=== PATIENT | female | born 1975 | race Caucasian/White ===

== ENCOUNTER 2018-06-03 07:56 | Emergency (ER) | payer OTHER, SELFPAY ==
[2018-06-03 07:59] VITALS: BP 138/78; PULSE 71; RESP 16; TEMP 36.4; O2SAT 98
--- NOTE | 2018-06-03 08:14 | W.ED.GENAD ---
Discharge Plan Disposition Patient Disposition: HOME Condition: Stable Discharge Details Chief Complaint: DentalOral Clinical Impression: Pain due to dental caries Primary Care Provider: Jennifer Patrick ED Provider: Asher Snyder Home Meds and New Rx's Prescriptions: No Action multivitamin [One-A-Day Essential] 1 EACH tablet 1 ea PO DAILY RF: 0 venlafaxine 37.5 MG capsule,extended release 24hr 37.5 mg PO DAILY Qty: 90 RF: 4 Discharge Instructions Instructions: Dental Caries (ED) Additional Instructions: you can take 650mg tylenol and 600mg ibuprofen every 6 hours for pain as needed follow up with your dentist if you have difficulty breathing, significant increase in swelling or difficulty swallowing liquids return to the emergency department Stand Alone Forms: Work Release Medical Decision Making 43 yo female comes in with chief complaint of right upper molar pain starting this morning. She had a tooth pulled by her dentist earlier this week on the right lower side and is on pcn and flagyl from this. This morning started to have right upper tooth pain. no stridor or drooling, normal oropharynx with midline uvula and no submandibula swelling. Has numerous caries and pain in the right posterior molar without visible abscess. Suspect dental infection. Advised to f/u with dentist and return if worsening. No findings to suggest ludwigs, rpa, travel pta, epiglotitis at this time Differential Diagnosis dental infection, abscess HPI General Mode of arrival: ambulatory. Date/Time Provider Initiated Documentation: 06/03/18 08:02. Limitations to Documentation: no limitations. Information obtained by: patient. History of Present Illness 43 year old F presents to the emergency department with the chief complaint of right upper tooth pain, described as moderate, Quality is described as aching, and is localized to the mouth. Patient reports no radiation. Patient started experiencing this hour(s) (3) and it has been constant. No relieving factors improve symptom(s), No exacerbating factors reported . Patient notes no other symptoms.. Related Data Home Medications Medication Instructions Recorded Confirmed multivitamin [One-A-Day Essential] 1 ea PO DAILY 11/17/17 06/03/18 venlafaxine 37.5 mg PO DAILY #90 tab-cap 11/28/17 06/03/18 Previous Rx's Medication Instructions Recorded venlafaxine 37.5 mg PO DAILY #90 tab-cap 11/28/17 Allergies Allergy/AdvReac Type Severity Reaction Status Date / Time Sulfa (Sulfonamide Allergy Skin Rash Unverified 06/03/18 08:03 Antibiotics) seafood Allergy Vomiting Uncoded 06/03/18 08:03 General Stated Complaint: DentalOral BELLE: 4 Review of Systems Review of Systems All systems reviewed & are unremarkable except as noted in HPI and below Constitutional Denies chills and Denies fever(s) ENT Denies change in voice PFSH Medical History Anxiety Depression GERD with esophagitis PLEVA (pityriasis lichenoides et varioliformis acuta) PTSD (post-traumatic stress disorder) Tobacco use Surgical History REVERSED TUBAL LIGATION Ligation of fallopian tube Family History Mother Alcohol abuse Depression Father Brain tumor Heart disease Sister PTSD (post-traumatic stress disorder) Substance abuse Alcohol abuse Depression Sister Fibromyalgia Brother Substance abuse Alcohol abuse Brother Substance abuse Alcohol abuse Grandfather Alcohol abuse Grandfather No problems noted. Grandmother Emphysema lung Grandmother Brain tumor Daughter Substance abuse Depression Social History Smoking/Tobacco Use Status: Current-Occasional Exam Const General: no acute distress Orientation: alert HENMT Head: normal to inspection Ears: external ears normal General nose exam: external nose normal Mouth: moist mucous membranes Eyes General: appearance normal, both eyes and all related structures Neck Neck: normal visual inspection Resp Effort & Inspection: normal respiratory effort and able to speak in complete sentences Cardio Rate: regular rate Skin General skin exam: no rashes or lesions noted Neuro General: alert and oriented x3 Extrem General: normal to inspection Psych Mental Status: mental status grossly normal Course Vital Signs Temperature 36.4 C L 06/03/18 07:59 Pulse 71 06/03/18 07:59 Respiratory Rate 16 06/03/18 07:59 Blood Pressure 138/78 06/03/18 07:59 Pulse Oximetry 98 06/03/18 07:59 Temperature 36.4 C L 06/03/18 07:59 Temperature Source Skin 06/03/18 07:59 Pulse 71 06/03/18 07:59 Respiratory Rate 16 06/03/18 07:59 Blood Pressure 138/78 06/03/18 07:59 Blood Pressure Position Sitting 06/03/18 07:59 Pulse Oximetry 98 06/03/18 07:59 Oxygen Delivery Method Room Air 06/03/18 07:59 Oxygen Flow Rate 0 06/03/18 07:59 Pain Level 10 06/03/18 07:59
--- NOTE | 2018-06-03 08:18 | ED.GENADUL_ITS ---
Discharge Plan Disposition Patient Disposition: HOME Condition: Stable Discharge Details Chief Complaint: DentalOral Clinical Impression: Pain due to dental caries Primary Care Provider: Jennifer Patrick ED Provider: Asher Snyder Home Meds and New Rx's Prescriptions: No Action multivitamin [One-A-Day Essential] 1 EACH tablet 1 ea PO DAILY RF: 0 venlafaxine 37.5 MG capsule,extended release 24hr 37.5 mg PO DAILY Qty: 90 RF: 4 Discharge Instructions Instructions: Dental Caries (ED) Additional Instructions: you can take 650mg tylenol and 600mg ibuprofen every 6 hours for pain as needed follow up with your dentist if you have difficulty breathing, significant increase in swelling or difficulty swallowing liquids return to the emergency department Stand Alone Forms: Work Release Medical Decision Making 43 yo female comes in with chief complaint of right upper molar pain starting this morning. She had a tooth pulled by her dentist earlier this week on the right lower side and is on pcn and flagyl from this. This morning started to have right upper tooth pain. no stridor or drooling, normal oropharynx with midline uvula and no submandibula swelling. Has numerous caries and pain in the right posterior molar without visible abscess. Suspect dental infection. Advised to f/u with dentist and return if worsening. No findings to suggest ludwigs, rpa, tugboat captain, epiglotitis at this time Differential Diagnosis dental infection, abscess HPI General Mode of arrival: ambulatory . Date/Time Provider Initiated Documentation: 06/03/18 08:02 . Limitations to Documentation: no limitations . Information obtained by: patient . History of Present Illness 43 year old F presents to the emergency department with the chief complaint of right upper tooth pain, described as moderate, Quality is described as aching, and is localized to the mouth. Patient reports no radiation. Patient started experiencing this hour(s) (3) and it has been constant. No relieving factors improve symptom(s), No exacerbating factors reported . Patient notes no other symptoms.. Related Data Home Medications Medication Instructions Recorded Confirmed multivitamin [One-A-Day Essential] 1 ea PO DAILY 11/17/17 06/03/18 venlafaxine 37.5 mg PO DAILY #90 tab-cap 11/28/17 06/03/18 Previous Rx's Medication Instructions Recorded venlafaxine 37.5 mg PO DAILY #90 tab-cap 11/28/17 Allergies Allergy/AdvReac Type Severity Reaction Status Date / Time Sulfa (Sulfonamide Allergy Skin Rash Unverified 06/03/18 08:03 Antibiotics) seafood Allergy Vomiting Uncoded 06/03/18 08:03 General Stated Complaint: DentalOral BELLE: 4 Review of Systems Review of Systems All systems reviewed & are unremarkable except as noted in HPI and below Constitutional Denies chills and Denies fever(s) ENT Denies change in voice PFSH Medical History Anxiety Depression GERD with esophagitis PLEVA (pityriasis lichenoides et varioliformis acuta) PTSD (post-traumatic stress disorder) Tobacco use Surgical History REVERSED TUBAL LIGATION Ligation of fallopian tube Family History Mother Alcohol abuse Depression Father Brain tumor Heart disease Sister PTSD (post-traumatic stress disorder) Substance abuse Alcohol abuse Depression Sister Fibromyalgia Brother Substance abuse Alcohol abuse Brother Substance abuse Alcohol abuse Grandfather Alcohol abuse Grandfather No problems noted. Grandmother Emphysema lung Grandmother Brain tumor Daughter Substance abuse Depression Social History Smoking/Tobacco Use Status: Current-Occasional Exam Const General: no acute distress Orientation: alert HENMT Head: normal to inspection Ears: external ears normal General nose exam: external nose normal Mouth: moist mucous membranes Eyes General: appearance normal, both eyes and all related structures Neck Neck: normal visual inspection Resp Effort & Inspection: normal respiratory effort and able to speak in complete sentences Cardio Rate: regular rate Skin General skin exam: no rashes or lesions noted Neuro General: alert and oriented x3 Extrem General: normal to inspection Psych Mental Status: mental status grossly normal Course Vital Signs Temperature 36.4 C L 06/03/18 07:59 Pulse 71 06/03/18 07:59 Respiratory Rate 16 06/03/18 07:59 Blood Pressure 138/78 06/03/18 07:59 Pulse Oximetry 98 06/03/18 07:59 Temperature 36.4 C L 06/03/18 07:59 Temperature Source Skin 06/03/18 07:59 Pulse 71 06/03/18 07:59 Respiratory Rate 16 06/03/18 07:59 Blood Pressure 138/78 06/03/18 07:59 Blood Pressure Position Sitting 06/03/18 07:59 Pulse Oximetry 98 06/03/18 07:59 Oxygen Delivery Method Room Air 06/03/18 07:59 Oxygen Flow Rate 0 06/03/18 07:59 Pain Level 10 06/03/18 07:59
== END 2018-06-03 08:30 | disposition home or self-care (01) ==
PROVIDERS: Emergency Provider Emergency Medicine; PCP Nurse Practitioner Family
DX: K08.89 Other specified disorders of teeth and supporting structures (principal); K02.9 Dental caries, unspecified
CPT/HCPCS: 99282

== ENCOUNTER 2018-06-11 13:42 | Emergency (ER) | payer OTHER, SELFPAY ==
[2018-06-11 13:56] VITALS: BP 112/70; PULSE 76; RESP 18; TEMP 36.7; O2SAT 100
[2018-06-11 14:37] LABS: Bilirubin Negative (Negative); Blood Negative (Negative); Clarity Clear; Glucose Negative (Negative); Ketones Trace mg/dL (Negative); Leukocyte Esterase Negative (Negative); Nitrite Negative (Negative); Specific Gravity 1.015 (1.005-1.025); Urobilinogen 0.2 EU/dL (Up TO 0.2); pH 7.5 (5-8)
[2018-06-11] MEDS: Normal Saline 1,000 ML 1000 ML IV (15:08)
[2018-06-11] MEDS: Prochlorperazine 5 MG TAB PO (15:09)
[2018-06-11] MEDS: Ketorolac 30 MG/ML VIAL IVP (15:09)
[2018-06-11 15:16] LABS: Abs Immature Grans 0.02 k/cumm (0.0-0.09); Absolute Basophil Count 0.06 k/cumm (0.0-0.2); Absolute Eosinophil Count 0.16 k/cumm (0.0-0.7); Absolute Lymphocyte Count 2.99 k/cumm (1.2-3.4); Absolute Monocyte Count 0.48 k/cumm (0.11-0.7); Absolute Neutrophil Count 4.85 k/cumm (1.2-6.7); Basophils % 0.7; Eosinophils % 1.9; HCT 43.9 % (36.0-46.0); HGB 14.8 g/dL (12.0-15.5); Immature Grans % 0.2; Lymphocytes % 34.9; Mean Corp. HGB Concentration 33.7 g/dL (32.0-36.0); Mean Platelet Volume 9.3 fL (8.0-11.0); Monocytes % 5.6; Neutrophils % 56.7; Platelet Count 321 x1000/uL (130-400); RBC 4.93 m/cumm (4.00-5.20); RBC Distribution Width 12.8 % (11.7-14.6); White Blood Cell Count 8.56 k/cumm (4.4-10.8)
[2018-06-11 15:42] LABS: ALT 25 U/L (12-78); AST 20 U/L (15-37); Albumin 4.5 g/dL (3.4-5.0); Alkaline Phosphatase 55 U/L (46-116); Anion Gap 6.7 mmol/L (3-11); BUN 12 mg/dL (7-18); Bilirubin, Total 0.7 mg/dL (0.2-1.0); CO2 31.3 mmol/L (21.0-32.0); CREATININE 0.68 mg/dL (0.55-1.02); Calcium 9.3 mg/dL (8.5-10.1); Chloride 100 mmol/L (98-107); Glucose 104 mg/dL (70-100); Potassium 3.4 mmol/L (3.5-5.1); Sodium 138 mmol/L (136-145); TSH (W/Ref FT4) 3.41 uIU/mL (0.358-3.74); Total Protein 8.1 g/dL (6.4-8.2)
--- NOTE | 2018-06-11 16:22 | ED.GENADUL_ITS ---
Discharge Plan Disposition Patient Disposition: HOME Discharge Details Chief Complaint: GenMedical Primary Care Provider: Jennifer Patrick ED Provider: Sunil Zeng Home Meds and New Rx's Prescriptions: Continued multivitamin [One-A-Day Essential] 1 EACH tablet 1 ea PO DAILY RF: 0 venlafaxine 37.5 MG capsule,extended release 24hr 37.5 mg PO DAILY Qty: 90 RF: 4 Discharge Data Discharge Date/Time-TO BE ENTERED AT DEPARTURE: 06/11/18 16:40 Medical Decision Making Patient presenting to the emergency department for cold-like symptoms. Patient states that she has taken [id number] acetaminophen and not had any relief of symptoms. She states headache, sore throat, sinus pressure, ear pressure. Exam is benign for any acute findings and no signs of meningitis, no signs of retropharyngeal or peritonsillar abscess, normal cardiac and respiratory exam. Patient does state some jittery feeling and concerned about her thyroid. Patient does appear acutely ill but nontoxic in appearance with stable vital signs, afebrile non-hypotensive. Plan to check labs, treat patient's headache, and check influenza. Pending results patient given Compazine, Toradol, and IV fluids Review of results shows negative influenza and otherwise nondiagnostic non- worrisome labs. Patient reassessed and states slight improvement. Feel the patient is suffering from viral type illness and discussed with patient supportive care follow-up with primary care as needed for reassessment or to return for any new or significant worsening of symptoms. After discussion of diagnosis and plan of care patient has no further needs, questions, or concerns and states clear understanding to return to the emergency department for any worsening symptoms. HPI General Mode of arrival: ambulatory . Date/Time Provider Initiated Documentation: 06/11/18 14:06 . Limitations to Documentation: no limitations . Information obtained by: patient and RN notes reviewed . History of Present Illness 43 year old F presents to the emergency department with the chief complaint of Not feeling well, described as moderate, with intensity rated at 6. Quality is described as aching and other, and is localized to the head. Patient started experiencing this day(s) (3) and it has been constant. No relieving factors improve symptom(s), No exacerbating factors reported . Patient did receive the following treatments prior to arrival, other (Acetaminophen) Related Data Home Medications Medication Instructions Recorded Confirmed multivitamin [One-A-Day Essential] 1 ea PO DAILY 11/17/17 06/03/18 venlafaxine 37.5 mg PO DAILY #90 tab-cap 11/28/17 06/03/18 Previous Rx's Medication Instructions Recorded venlafaxine 37.5 mg PO DAILY #90 tab-cap 11/28/17 Allergies Allergy/AdvReac Type Severity Reaction Status Date / Time Sulfa (Sulfonamide Allergy Skin Rash Unverified 06/12/18 13:31 Antibiotics) seafood Allergy Vomiting Uncoded 06/12/18 13:31 General Stated Complaint: GenMedical BELLE: 3 Review of Systems Constitutional Reports body ache(s), Reports chills, Denies fever(s), Reports headache(s) and Reports malaise Eyes Denies change in vision and Denies eye discharge ENT Reports as per HPI, Denies dizziness, Reports headache(s), Denies neck pain, Reports sinus pressure, Reports sore throat and Denies throat swelling Cardiovascular Denies chest pain and Denies dyspnea Respiratory Reports cough and Denies dyspnea Musculoskeletal Denies joint swelling and Denies neck pain Integumentary/Breasts Denies rash Neurologic Denies dizziness and Reports headache(s) Allergic/Immunologic Denies throat swelling PFSH Medical History Anxiety Depression GERD with esophagitis PLEVA (pityriasis lichenoides et varioliformis acuta) PTSD (post-traumatic stress disorder) Tobacco use Surgical History REVERSED TUBAL LIGATION Ligation of fallopian tube Family History Mother Alcohol abuse Depression Father Brain tumor Heart disease Sister PTSD (post-traumatic stress disorder) Substance abuse Alcohol abuse Depression Sister Fibromyalgia Brother Substance abuse Alcohol abuse Brother Substance abuse Alcohol abuse Grandfather Alcohol abuse Grandfather No problems noted. Grandmother Emphysema lung Grandmother Brain tumor Daughter Substance abuse Depression Social History Smoking/Tobacco Use Status: Current-Occasional Exam Const General: cooperative, comfortable and no acute distress Orientation: alert and awake HENRI Head: normal to inspection, normocephalic and atraumatic Ears: hearing grossly normal bilaterally and TM's normal bilaterally General nose exam: external nose normal Face and sinus: normal facial exam and no erythema Mouth: oral mucosae normal, no drooling, no muffled voice and no trismus Throat: posterior oropharynx normal, tonsils normal and uvula midline Neck Neck: normal visual inspection, full ROM, no lymphadenopathy, no meningeal signs, trachea midline and supple Resp Effort & Inspection: normal respiratory effort and able to speak in complete sentences Auscultation: clear to auscultation bilaterally Cardio Rate: regular rate Rhythm: regular rhythm Heart Sounds: S1 normal, S2 normal, normal S1 and S2, no click, no gallops, no murmurs and no rubs Skin General skin exam: no rashes or lesions noted and dry skin (warm) Neuro General: alert, awake, oriented x3, gait normal, moves all extremities, no meningeal signs, no focal motor deficits and CN's II-XI intact bilaterally Cognition: normal cognition Speech: speech normal Gait: normal gait Course Vital Signs Temperature 36.7 C 06/11/18 13:56 Pulse 76 06/11/18 13:56 Respiratory Rate 18 06/11/18 13:56 Blood Pressure 112/70 06/11/18 13:56 Pulse Oximetry 100 06/11/18 13:56 Temperature 36.7 C 06/11/18 13:56 Temperature Source Skin 06/11/18 13:56 Pulse 76 06/11/18 13:56 Respiratory Rate 18 06/11/18 13:56 Respiratory Effort Non-Labored 06/11/18 14:21 Blood Pressure 112/70 06/11/18 13:56 Blood Pressure Position Sitting 06/11/18 13:56 Pulse Oximetry 100 06/11/18 13:56 Oxygen Delivery Method Room Air 06/11/18 13:56 Oxygen Flow Rate 0 06/11/18 13:56 Pain Level 8 06/11/18 15:09 Lab/Test Results Lab/Test Results: 06/11/18 14:55 Nasopharynx Influenza Types A,B Antigen - Final Laboratory Tests Range/Units 06/11/18 06/11/18 06/11/18 14:23 15:00 15:00 WBC (4.4-10.8) k/cumm 8.56 RBC (4.00-5.20) m/cumm 4.93 Hgb (12.0-15.5) g/dL 14.8 Hct (36.0-46.0) % 43.9 MCV (80-95) fL 89.0 MCH (27.0-33.0) pg 30.0 MCHC (32.0-36.0) g/dL 33.7 RDW (11.7-14.6) % 12.8 Plt Count (130-400) x1000/uL 321 MPV (8.0-11.0) fL 9.3 Immature Gran % 0.2 Neutrophils % 56.7 Lymphocytes % 34.9 Monocytes % 5.6 Eosinophils % 1.9 Basophils % 0.7 Absolute Neutrophils (1.2-6.7) k/cumm 4.85 Absolute Lymphocytes (1.2-3.4) k/cumm 2.99 Absolute Monocytes (0.11-0.7) k/cumm 0.48 Absolute Eosinophils (0.0-0.7) k/cumm 0.16 Absolute Basophils (0.0-0.2) k/cumm 0.06 Sodium (136-145) mmol/L 138 Potassium (3.5-5.1) mmol/L 3.4 L Chloride (98-107) mmol/L 100 Carbon Dioxide (21.0-32.0) mmol/L 31.3 Anion Gap (3-11) mmol/L 6.7 BUN (7-18) mg/dL 12 Creatinine (0.55-1.02) mg/dL 0.68 Estimated GFR/1.73 m2 (mL/min/1.73m2) >= 60.00 Glucose (70-100) mg/dL 104 H Calcium (8.5-10.1) mg/dL 9.3 Total Bilirubin (0.2-1.0) mg/dL 0.7 AST (15-37) U/L 20 ALT (12-78) U/L 25 Alkaline Phosphatase (46-116) U/L 55 Total Protein (6.4-8.2) g/dL 8.1 Albumin (3.4-5.0) g/dL 4.5 TSH (0.358-3.74) uIU/mL 3.41 Urine Color (Yellow) Yellow Urine Clarity Clear Urine pH (5-8) 7.5 Ur Specific [place] (1.005-1.025) 1.015 Urine Protein (Negative) mg/dL Negative Urine Ketones (Negative) mg/dL Trace H Urine Blood (Negative) Negative Urine Nitrite (Negative) Negative Urine Bilirubin (Negative) Negative Urine Urobilinogen (Up TO 0.2) EU/dL 0.2 Ur Leukocyte Esterase (Negative) Negative Urine Glucose (Negative) mg/dL Negative POC- Test(urine) Negative
[2018-06-11 16:34] VITALS: RESP 12
[2018-06-11 16:36] VITALS: BP 111/63; PULSE 56; RESP 12; TEMP 37.2; O2SAT 99
== END 2018-06-11 16:40 | disposition home or self-care (01) ==
PROVIDERS: Emergency Provider Nurse Practitioner Family; PCP Nurse Practitioner Family
DX: B34.9 Viral infection, unspecified (principal)
CPT/HCPCS: 36415; 80053; 81025; 87449; 96361; 96375; 99285; 81003; 84443; 85025; 99284; J1885

== ENCOUNTER 2019-04-07 11:55 | Emergency (ER) | payer OTHER, SELFPAY ==
[2019-04-07] VITALS (12 sets, daily range): BP systolic 95–109; BP diastolic 60–74; PULSE 55–73; RESP 10–24; TEMP 37.2; O2SAT 97–100
[2019-04-07 12:26] LABS: Absolute Basophil Count 0.04 k/cumm (0.0-0.2); Absolute Eosinophil Count 0.18 k/cumm (0.0-0.7); Absolute Lymphocyte Count 2.05 k/cumm (1.2-3.4); Absolute Monocyte Count 0.39 k/cumm (0.11-0.7); Absolute Neutrophil Count 4.86 k/cumm (1.2-6.7); Basophils % 0.5; Eosinophils % 2.4; HCT 39.8 % (36.0-46.0); HGB 13.5 g/dL (12.0-15.5); Lymphocytes % 27.3; Mean Corp. HGB Concentration 33.9 g/dL (32.0-36.0); Mean Corpuscular Hemoglobin 30.6 pg (27.0-33.0); Mean Corpuscular Volume 90.2 fL (80-95); Mean Platelet Volume 9.4 fL (8.0-11.0); Monocytes % 5.2; Neutrophils % 64.6; Platelet Count 279 x1000/uL (130-400); RBC 4.41 m/cumm (4.00-5.20); RBC Distribution Width 12.9 % (11.7-14.6); White Blood Cell Count 7.52 k/cumm (4.4-10.8)
--- NOTE | 2019-04-07 12:33 | W.ED.GENAD ---
Discharge Plan Disposition Patient Disposition: HOME Condition: Stable Discharge Details Chief Complaint: CVA/TIA Clinical Impression: Hoover's palsy Primary Care Provider: Jennifer Patrick ED Provider: Sunil Zeng Home Meds and New Rx's Prescriptions: New prednisone 20 mg tablet See Rx Instructions .ROUTE .COMPLEX Qty: 28 RF: 0 valacyclovir 1 gram tablet 1,000 mg PO TID 7 Days Qty: 21 RF: 0 Continued nicotine 10 mg cartridge 1 inh IH .6-16X/DAY PRN (Reason: nicotine cravings) Qty: 168 RF: 4 multivitamin [One-A-Day Essential] 1 EACH tablet 1 ea PO DAILY RF: 0 venlafaxine 37.5 mg capsule,extended release 24hr 37.5 mg PO DAILY Qty: 60 RF: 0 Discharge Instructions Instructions: Hoover Palsy (ED) Additional Instructions: Please take medication as prescribed and also purchase [id number] dry eye drops and use these 2-3 times daily or more for any worsening dry eyes or eye irritation. It is important that you follow-up with [facility] for reassessment if you develop any irritation to your right eye. Return immediately for any new or significant worsening of symptoms or change in your symptoms. Referrals: [facility] [Outside] (Call their office for arrangement of follow-up appointment and inform them of your diagnosis and need of rechecks.) Jennifer Patrick, [employer] [Primary Care Provider] - (For reassessment) Discharge Data Discharge Date/Time-TO BE ENTERED AT DEPARTURE: 04/07/19 13:24 Medical Decision Making Patient presenting the emergency department chief complaint of right-sided facial droop including mouth not a working correctly . Noticed this this morning when awaking. She states that she has been under significant amount of stress and last week while at work developed some PVCs that were noted on the monitor. Patient denies any pain or discomfort, has stated some pressure behind her eyes that she attributes to stress otherwise denies any cold symptoms, fever. Patient does state that she was bitten by a tick earlier this spring but never developed rash or any other symptoms. Physical exam shows findings consistent with right-sided Hoover's palsy, forehead is not spared, findings are subtle but there is a notable decrease in movement of the right side of the forehead eyelid lip and mouth consistent again with Hoover's palsy. Other cranial nerves are fully intact and patient has no other neurological symptoms on exam. Given that patient does state tick bite and given the area reliving I did decide to send off labs including tick panel. In the meantime patient started on prednisone and valacyclovir. Given patient's initial complaint of neurological symptoms and palpitations staff occupational therapist initiate protocol for EKG. EKG reviewed with Dr. Sy and shows sinus rhythm, rate of 62, no STEMI, nondiagnostic Review of labs shows no acute abnormalities on both CBC and CMP tick panel is still pending. Given that known tick bite was a significant time in the past I do not feel that starting on doxycycline initially is needed unless tick panel comes back positive. Given that patient can close her right eye just decrease in muscle tone she was encouraged to use dry eyedrops and follow-up with [facility] for reevaluation if any irritation is noted. Return precautions were discussed. Otherwise patient to follow-up with primary care provider as needed for reassessment. Patient started on prednisone and valacyclovir. after discussion of diagnosis and plan of care patient has no further needs, questions, or concerns and states clear understanding to return to the emergency department for any worsening symptoms. HPI General Mode of arrival: ambulatory. Date/Time Provider Initiated Documentation: 04/07/19 11:57. Limitations to Documentation: no limitations. Information obtained by: patient and RN notes reviewed. History of Present Illness 44 year old F presents to the emergency department with the chief complaint of Right sided facial droop, Quality is described as other (Denies pain or discomfort), Patient started experiencing this hour(s) (4) and it has been constant. No relieving factors improve symptom(s), Other factors that worsen symptoms (Patient has been under a lot of stress recently) . Patient did receive the following treatments prior to arrival, none Related Data Home Medications Medication Instructions Recorded Confirmed multivitamin [One-A-Day Essential] 1 ea PO DAILY 11/17/17 04/07/19 venlafaxine 37.5 mg 37.5 mg PO DAILY #60 cap 02/10/19 04/07/19 capsule,extended release 24 hr nicotine 10 mg inhalation cartridge 1 inh IH .6-16X/DAY PRN #168 each 02/25/19 04/07/19 prednisone See Rx Instructions .ROUTE 04/07/19 .COMPLEX #28 tab valacyclovir 1,000 mg PO TID 7 Days #21 tab 04/07/19 Previous Rx's Medication Instructions Recorded venlafaxine 37.5 mg 37.5 mg PO DAILY #60 cap 02/10/19 capsule,extended release 24 hr nicotine 10 mg inhalation cartridge 1 inh IH .6-16X/DAY PRN #168 each 02/25/19 prednisone See Rx Instructions .ROUTE 04/07/19 .COMPLEX #28 tab valacyclovir 1,000 mg PO TID 7 Days #21 tab 04/07/19 Allergies Allergy/AdvReac Type Severity Reaction Status Date / Time Sulfa (Sulfonamide Allergy Skin Rash Unverified 04/07/19 12:21 Antibiotics) seafood Allergy Vomiting Uncoded 04/07/19 12:21 General Stated Complaint: CVA/TIA BELLE: 3 Review of Systems Constitutional Constitutional: Denies chills, Denies fever(s) and Reports headache(s) (Reported as pressure behind eyes) ENT Ears, Nose, Mouth, and Throat: Reports as per HPI, Denies vertigo and Reports headache(s) (Reported as pressure behind eyes) Cardiovascular Cardiovascular: Denies chest pain, Denies syncope, Reports palpitations (Couple nights ago at work which were noted to be PVCs) and Denies dyspnea Respiratory Respiratory: Denies dyspnea Neurologic Neurologic: Reports as per HPI, Denies confusion, Denies vertigo, Denies syncope, Reports headache(s) (Reported as pressure behind eyes), Reports focal weakness (Right side of face) and Denies sensory deficit Psychiatric Psychiatric: Denies confusion Endocrine Endocrine: Reports palpitations (Couple nights ago at work which were noted to be PVCs) FOR[facility] Medical History ADHD (attention deficit hyperactivity disorder) (Chronic) Cigarette smoker (Chronic) Generalized anxiety disorder (Chronic) GERD with esophagitis (Chronic) Hiatal hernia (Inactive) Hyperlipidemia (Chronic) Major depressive disorder (Inactive) PTSD (post-traumatic stress disorder) (Chronic) Suicide attempt (Resolved) Lorazepam overdose. Hospitalized 03/31/07-04/02/07 at [facility] Surgical History History of bilateral tubal ligation (Acute ~1999) History of reversal of tubal ligation (Acute ~2000) Family History Mother , at 50 Alcohol abuse Depression Father , at 81 Brain tumor Heart disease Alcohol abuse Sister PTSD (post-traumatic stress disorder) Substance abuse Alcohol abuse Depression Sister Fibromyalgia Substance abuse Brother Substance abuse Alcohol abuse Brother Substance abuse Alcohol abuse Daughter Substance abuse Depression Maternal Grandfather Alcohol abuse Maternal Grandmother Emphysema lung Paternal Grandfather No problems noted. Paternal Grandmother Brain tumor Social History Smoking/Tobacco Use Status: Current every day Tobacco Type: cigarettes Smoking packs per day: 1 Smoking cigarettes per day: 20.0 Years smoked: 30 Smoking pack-years: 30.00 Drug use: Occasionally Do you feel safe in your relationship?: Yes Female Reproductive History Menstrual control method: natural family planning History History 1 Para 1 Hx # Term Pregnancies Multiple births Hx # Pregnancies Ectopic pregnancies AB induced Hx Number of Living Children 1 AB spontaneous Exam Const General: cooperative, healthy appearing, no acute distress and well groomed Orientation: alert, awake and oriented x3 HENMT Head: normal to inspection Ears: hearing grossly normal bilaterally and TM's normal bilaterally Mouth: oral mucosae normal and moist mucous membranes Throat: posterior oropharynx normal Eyes Visual De La Rosa: normal visual de la rosa by confrontation Alignment and Position: alignment normal Periorbital: periorbital findings normal Eyelids: eyelids normal Sclera: sclerae normal Cornea: corneas normal Pupils: PERRL EOM: EOM intact bilaterally Neck Neck: normal visual inspection, full ROM, no lymphadenopathy and no meningeal signs Resp Effort & Inspection: normal respiratory effort and able to speak in complete sentences Auscultation: clear to auscultation bilaterally Cardio Rate: regular rate Rhythm: regular rhythm Heart Sounds: S1 normal and S2 normal Neuro General: alert, awake, oriented x3, gait normal, tone normal, moves all extremities and not confused Cranial Nerves: individual cranial nerve findings VII: abnormal (Facial paralysis no forehead sparing, weakness in right eyebrow raise, drooping right angle of mouth) Cognition: normal cognition Speech: speech normal Motor: muscle tone normal throughout, strength 5/5 throughout, no pronator drift, no movement abnormalities noted and no fasciculations Sensory Exam: no sensory deficits noted Coordination: bibral-he-xqed test normal and Does not sway with eyes open Course Vital Signs Vital signs: Vital Signs Temperature 37.2 C 04/07/19 12:01 Pulse 73 04/07/19 12:01 Respiratory Rate 12 04/07/19 12:01 Blood Pressure 109/74 04/07/19 12:01 Pulse Oximetry 97 04/07/19 12:01 Temperature 37.2 C 04/07/19 12:01 Temperature Source Skin 04/07/19 12:01 Pulse 73 04/07/19 12:01 Respiratory Rate 12 04/07/19 12:01 Respiratory Effort Non-Labored 04/07/19 12:01 Blood Pressure 109/74 04/07/19 12:01 Blood Pressure Position Sitting 04/07/19 12:01 Pulse Oximetry 97 04/07/19 12:01 Oxygen Delivery Method Room Air 04/07/19 12:01 Oxygen Flow Rate 0 04/07/19 12:01 Pain Level 0 04/07/19 12:01 Lab/Test Results Lab/Test Results: Laboratory Tests Range/Units 04/07/19 12:20 WBC (4.4-10.8) k/cumm 7.52 RBC (4.00-5.20) m/cumm 4.41 Hgb (12.0-15.5) g/dL 13.5 Hct (36.0-46.0) % 39.8 MCV (80-95) fL 90.2 MCH (27.0-33.0) pg 30.6 MCHC (32.0-36.0) g/dL 33.9 RDW (11.7-14.6) % 12.9 Plt Count (130-400) x1000/uL 279 MPV (8.0-11.0) fL 9.4 Immature Gran % 0.0 Neutrophils % 64.6 Lymphocytes % 27.3 Monocytes % 5.2 Eosinophils % 2.4 Basophils % 0.5 Absolute Neutrophils (1.2-6.7) k/cumm 4.86 Absolute Lymphocytes (1.2-3.4) k/cumm 2.05 Absolute Monocytes (0.11-0.7) k/cumm 0.39 Absolute Eosinophils (0.0-0.7) k/cumm 0.18 Absolute Basophils (0.0-0.2) k/cumm 0.04
[2019-04-07 12:40] LABS: ALT 18 U/L (14-59); AST 15 U/L (15-37); Albumin 3.9 g/dL (3.4-5.0); Alkaline Phosphatase 50 U/L (46-116); Anion Gap 8.3 mmol/L (3-11); BUN 13 mg/dL (7-18); Bilirubin, Total 0.8 mg/dL (0.2-1.0); CO2 27.7 mmol/L (21.0-32.0); CREATININE 0.64 mg/dL (0.55-1.02); Calcium 8.6 mg/dL (8.5-10.1); Chloride 104 mmol/L (98-107); Glucose 96 mg/dL (70-100); Potassium 3.7 mmol/L (3.5-5.1); Sodium 140 mmol/L (136-145); Total Protein 7.2 g/dL (6.4-8.2)
[2019-04-07] MEDS: predniSONE 20 MG TAB 60 MG PO (13:14)
[2019-04-07] MEDS: valACYclovir 1,000 MG TAB 1000 MG PO (13:15)
[2019-04-08 10:58] LABS: Lyme Ab w Rflx to Lyme Confirm Negative
[2019-04-09 19:45] LABS: Anaplasma phagocytophilum Negative (Negative); B. miyamotoi PCR Negative (Negative); Babesia divergens/MO-1 Negative (Negative); Babesia duncani Negative (Negative); Babesia microti Negative (Negative); Ehrlichia chaffeensis Negative (Negative); Ehrlichia ewingii/canis Negative (Negative); Ehrlichia muris eauclairensis Negative (Negative)
== END 2019-04-07 13:24 | disposition home or self-care (01) ==
PROVIDERS: Emergency Provider Nurse Practitioner Family; PCP Nurse Practitioner Family
DX: G51.0 Bell's palsy (principal); R00.2 Palpitations
CPT/HCPCS: 80053; 87798; 93005; 99284; 85025; 86618; 93010; J7512

== ENCOUNTER 2019-12-22 14:16 | Emergency (ER) | payer OTHER, SELFPAY ==
[2019-12-22 14:22] VITALS: BP 123/73; PULSE 84; TEMP 37.2; O2SAT 100
--- NOTE | 2019-12-22 15:05 | ED.GENADUL_ITS ---
Discharge Plan Disposition Patient Disposition: HOME Condition: Stable Discharge Details Chief Complaint: Orthopedic Clinical Impression: Shoulder pain Primary Care Provider: Jennifer Patrick ED Provider: Drew Henderson Home Meds and New Rx's Prescriptions: Continued venlafaxine 75 mg tablet extended release 24hr 75 mg PO DAILY Qty: 90 RF: 4 methocarbamol 750 mg tablet 750 mg PO TID PRN (Reason: back pain) Qty: 90 RF: 0 Discharge Instructions Instructions: Shoulder Pain (ED) Additional Instructions: Wear sling as needed, advance activity as tolerated. Passive range of motion at least 4 times daily to avoid frozen shoulder. Cool and/or warm compresses every 2 hours for 20 minutes. [id number] Tylenol and/or Motrin as directed for discomfort. Please watch for new or worsening symptoms and return to the ER for any concerns. I have given you the name and number of our local orthopedic, I recommend contacting their office in the next 5 days if you are not feeling much improvement with conservative therapy. Stand Alone Forms: Work Release Referrals: Delio Aquino MD [ [facility] STAFF PHYSICIAN] - Discharge Data Discharge Date/Time-TO BE ENTERED AT DEPARTURE: 12/22/19 16:43 Medical Decision Making 44-year-old female who is right-hand dominant presents with 2-3-month history of right shoulder pain exacerbated after lifting a bench yesterday and kayaking over the weekend. This certainly appears to be musculoskeletal in nature. Will obtain x-ray and then reassess. X-ray read by me as no acute fracture. Mild arthritic changes as well as calcific tendinosis. This was later confirmed by radiology. Given x-ray findings I believe that a calcific tendinitis is the most likely diagnosis. Discussed findings with patient. Will provide a single dose of Motrin now, sling, orthopedic referral. We discussed the importance of passive range of motion at least 4 times daily to avoid a frozen shoulder. Patient given a light duty work note for the next 3 days. Patient will follow-up in orthopedic clinic in a week or so if no resolution of symptoms with conservative care. Patient comfortable with this plan and has additional questions or concerns. Medical Records Medical records reviewed: Yes I reviewed the patient's medical records. HPI General Mode of arrival: ambulatory . Date/Time Provider Initiated Documentation: 12/22/19 14:27 . Limitations to Documentation: no limitations . Information obtained by: patient . HPI Narrative: This is a 44-year-old female who is right-hand dominant, current cigarette smoker, with history of anxiety, depression, hyperlipidemia, GERD. She reports 3-month history of intermittent right shoulder pain that was made worse over the past several days after kayaking and then made even more worse yesterday when lifting up a bench at work. She reports intermittent tingling in her right hand. Denies weakness or numbness. Pain is moderate at rest and severe with attempting to move her shoulder. She reports that up until couple of days ago she had fairly decent range of motion of her shoulder but that has now dramatically decreased. She denies any pain into her neck, chest, shortness of breath, abdominal pain, back pain. Related Data Home Medications Medication Instructions Recorded Confirmed methocarbamol 750 mg tablet 750 mg PO TID PRN #90 tab 04/15/19 12/22/19 venlafaxine 75 mg tablet,extended 75 mg PO DAILY #90 tab 04/15/19 12/22/19 release 24 hr Previous Rx's Medication Instructions Recorded methocarbamol 750 mg tablet 750 mg PO TID PRN #90 tab 04/15/19 venlafaxine 75 mg tablet,extended 75 mg PO DAILY #90 tab 04/15/19 release 24 hr Allergies Allergy/AdvReac Type Severity Reaction Status Date / Time Sulfa (Sulfonamide Allergy Skin Rash Unverified 12/22/19 16:08 Antibiotics) seafood Allergy Vomiting Uncoded 12/22/19 16:08 General Stated Complaint: Orthopedic BELLE: 4 Review of Systems Constitutional Constitutional: Denies weakness ENT Ears, Nose, Mouth, and Throat: Denies neck pain Cardiovascular Cardiovascular: Denies chest pain and Denies dyspnea Respiratory Respiratory: Denies cough and Denies dyspnea Gastrointestinal Gastrointestinal: Denies abdominal pain, Denies nausea and Denies vomiting Musculoskeletal Musculoskeletal: Denies back pain, Denies neck pain, Denies numbness and Reports tingling Integumentary/Breasts Skin/Breast: Denies rash Neurologic Neurologic: Denies numbness, Reports tingling and Denies weakness [facility] Medical History ADHD (attention deficit hyperactivity disorder) (Chronic) Cigarette smoker (Chronic) Generalized anxiety disorder (Chronic) GERD with esophagitis (Chronic) Hiatal hernia (Inactive) Hyperlipidemia (Chronic) Major depressive disorder (Inactive) PTSD (post-traumatic stress disorder) (Chronic) Right-sided Hoover's palsy (Acute) Suicide attempt (Resolved) Lorazepam overdose. Hospitalized 03/31/07-04/02/07 at [facility] Surgical History History of bilateral tubal ligation (Acute ~1999) History of reversal of tubal ligation (Acute ~2000) Family History Mother , at 50 Alcohol abuse Depression Father , at 81 Brain tumor Heart disease Alcohol abuse Sister PTSD (post-traumatic stress disorder) Substance abuse Alcohol abuse Depression Sister Fibromyalgia Substance abuse Brother Substance abuse Alcohol abuse Brother Substance abuse Alcohol abuse Daughter Substance abuse Depression Maternal Grandfather Alcohol abuse Maternal Grandmother Emphysema lung Paternal Grandfather No problems noted. Paternal Grandmother Brain tumor Social History Smoking/Tobacco Use Status: Current every day Tobacco Type: cigarettes Smoking packs per day: 1 Smoking cigarettes per day: 20.0 Years smoked: 30 Smoking pack- years: 30.00 Drug use: Occasionally Do you feel safe at home: Yes Do you feel safe in your relationship?: Yes Female Reproductive History Menstrual control method: natural family planning History History 1 Para 1 Hx # Term Pregnancies Multiple births Hx # Pregnancies Ectopic pregnancies AB induced Hx Number of Living Children 1 AB spontaneous Exam Const General: cooperative, healthy appearing, comfortable and no acute distress Orientation: alert and awake [facility] Head: normal to inspection, normocephalic and atraumatic Mouth: moist mucous membranes Eyes Conjunctivae: conjunctivae normal Neck Neck: normal visual inspection, full ROM, trachea midline, supple and nontender Resp Effort & Inspection: normal respiratory effort and able to speak in complete sentences Auscultation: clear to auscultation bilaterally Cardio Rate: regular rate Rhythm: regular rhythm Skin General skin exam: no rashes or lesions noted Neuro General: patient alert, patient awake, moves all extremities and no focal motor deficits Sensory Exam: no sensory deficits noted Extrem Right upper extremity: normal capillary refill and shoulder/upper arm Details: normal to inspection, tenderness (Primarily over the anterior and lateral aspect) Location: over the biceps tendon, axillary nerve sensory function normal and abnormal ROM Details: held in an abnormal fashion Details: in ADduction, pain with active ROM (In all directions) and with range as follows (Unable to lift higher than 90 degrees) Psych Appearance: grossly normal Mental Status: mental status grossly normal Course Vital Signs Vital signs: Vital Signs Temperature 37.2 C 12/22/19 14:22 Pulse 84 12/22/19 14:22 Blood Pressure 123/73 12/22/19 14:22 Pulse Oximetry 100 12/22/19 14:22 Temperature 37.2 C 12/22/19 14:22 Temperature Source Temporal Artery Scan 12/22/19 14:22 Pulse 84 12/22/19 14:22 Respiratory Effort Non-Labored 12/22/19 14:29 Blood Pressure 123/73 12/22/19 14:22 Blood Pressure Position Sitting 12/22/19 14:22 Pulse Oximetry 100 12/22/19 14:22 Oxygen Delivery Method Room Air 12/22/19 14:22 Oxygen Flow Rate 0 12/22/19 14:22 Pain Level 8 12/22/19 14:22
--- NOTE | 2019-12-22 15:56 | DI.RAD_ITS ---
EXAM: XR SHOULDER RT COMPLETE 2+V CLINICAL HISTORY: Pain 2-3 months. Worse after lifting bench. TECHNIQUE: 2D digital imaging was performed. COMPARISON: No exams were available for comparison FINDINGS: BONES: No acute fracture is present. No bony destructive lesion is seen. JOINTS: No dislocation present. There is mild spurring at the glenoid. There is no significant AC j oint spurring. SOFT TISSUE: There is a rounded calcification seen adjacent to the lesser tuberosity, consistent with calcific tendinosis. IMPRESSION: Mild degenerative changes and calcific tendinosis. DATA REPOSITORY: RADIATION DOSE DELIVERED:
[2019-12-22] MEDS: Ibuprofen 800 MG TAB PO (16:07)
== END 2019-12-22 16:43 | disposition home or self-care (01) ==
PROVIDERS: Emergency Provider Physician Assistant; PCP Nurse Practitioner Family
DX: M70.811 Other soft tissue disorders related to use, overuse and pressure, right shoulder (principal); M25.511 Pain in right shoulder; X50.9XXA Other and unspecified overexertion or strenuous movements or postures, initial encounter
CPT/HCPCS: 99283; 73030; L3650

== ENCOUNTER 2020-11-01 14:53 | Emergency (ER) | payer OTHER, SELFPAY ==
[2020-11-01 14:59] VITALS: BP 109/84; PULSE 89; RESP 18; TEMP 36.7; O2SAT 99
--- NOTE | 2020-11-01 15:03 | ED.GENADUL_ITS ---
Discharge Plan Disposition Patient Disposition: HOME Condition: Stable Discharge Details Clinical Impression: Bacterial skin infection, Cough Primary Care Provider: Jennifer Patrick ED Provider: Emily Guillen Home Meds and New Rx's Prescriptions: New doxycycline hyclate 100 mg tablet 100 mg PO BID 7 Days Qty: 14 RF: 0 Continued methocarbamol 750 mg tablet 750 mg PO TID PRN (Reason: back pain) Qty: 90 RF: 0 omeprazole 20 mg capsule,delayed release(DR/EC) 20 mg PO DAILY Qty: 90 RF: 4 tretinoin microspheres 0.04 % gel 1 applic topical QHS Qty: 45 RF: 0 nicotine 14 mg/24 hr patch 24 hour 1 patch transdermal DAILY Qty: 28 RF: 0 nicotine 21 mg/24 hr patch 24 hour 1 patch transdermal DAILY Qty: 42 RF: 0 nicotine 7 mg/24 hr patch 24 hour 1 patch transdermal DAILY 14 Days Qty: 14 RF: 6 permethrin 5 % cream 1 applic topical ONCE Qty: 60 RF: 0 citalopram 40 mg tablet 40 mg PO DAILY Qty: 90 RF: 4 ivermectin 0.5 % lotion 1 applic TOPICAL BID RF: 0 Discharge Instructions Instructions: Cellulitis (ED), Acute Cough (ED) Additional Instructions: Drink plenty of fluids and get plenty of rest. Take the antibiotics until finished. Your prescription has been sent electronically to your pharmacy. Call your primary care doctor today to schedule a follow up appointment within the next week. Follow up with a bellman for further evaluation of your chronic rash. Return to the emergency department if you develop any worsening or new concerning symptoms such as fever, shortness of breath, or any other concerns. Discharge Data Discharge Date/Time-TO BE ENTERED AT DEPARTURE: 11/01/20 15:43 Discharge Physician: Emily Guillen Medical Decision Making 45-year-old female presents with facial rash for the past year, and a painful chin lesion noted since this morning. Also complaining of a productive cough for the past 2 weeks. Facial rash appears consistent with areas of erosion, crusting, excoriation and potentially worsening from scratching. The areas of chronic rash do not appear acutely infected. The new chin lesion appears consistent with a potential early bacterial skin infection. There is no evidence of abscess in this area. She expressed concern that her rash is not being treated correctly as she feels that it is potentially due to mites or larva. She does feel that the facial rash has improved with ivermectin over the past year. She states this chin lesion is new. She states she is also concerned that she is inhaling the mites which may be causing the cough. She has no known Covid exposures. I discussed at length that her presentation does not appear consistent with pneumonia or bronchitis, but as she is however a smoker with yellow sputum, will cover with antibiotics. She states she is postmenopausal. Will give antibiotics that will cover for what appears consistent with a bacterial skin infection on her chin and for her productive cough. I do not see indication for steroids, labs or imaging at this time. She is advised to stay home over the next few days so that she can limit mask wearing which may be rubbing against her chin. She is advised to follow-up again with dermatology so that they may consider a biopsy of her chronic skin lesions. She is advised to call her primary care doctor for follow-up. Usual and customary return precautions given prior to discharge. Medical Records Medical records reviewed: Yes I reviewed the patient's medical records. HPI General Mode of arrival: ambulatory . Date/Time Provider Initiated Documentation: 11/01/20 15:00 . Limitations to Documentation: no limitations . Information obtained by: patient . HPI Narrative: Patient is a 45-year-old female who presents for lesion noted to her chin today and productive cough for the past 2 weeks. Patient states she has seen her primary care doctor as well as dermatology for a chronic facial rash that she has had for the past year. She states she feels that this rash is due to mite as she feels that when she squeezes the area there are small legs or lower leg. She states she has not noted anything moving or crawling or with any leg but is suspicious that it is mites. She states she was diagnosed with possible acne and was put on 2 acne medications, one retinol and another Pepperin? By her primary care doctor and was referred to dermatology who thought that her symptoms are likely due to acne as well but when patient pressed the issue of potential mites, patient was placed on topical ivermectin which she states she has been taking for the past year with some relief. She states she does not not think that the rash has been biopsied. She states today she is mainly here for a new lesion which she noted on her chin this morning. She states the area is tender and red. She also admits to a cough for the past 2 weeks which has been productive of yellow sputum. She denies any known fever, shortness of breath, chest pain or known Covid exposures. She denies any new lotions, soaps, detergents. Related Data Home Medications Medication Instructions Recorded Confirmed methocarbamol 750 mg tablet 750 mg PO TID PRN #90 tab 04/15/19 11/01/20 nicotine 14 mg/24 hr daily 1 patch TRANSDERMAL DAILY #28 ea 03/02/20 11/01/20 transdermal patch nicotine 21 mg/24 hr daily 1 patch TRANSDERMAL DAILY #42 ea 03/02/20 11/01/20 transdermal patch nicotine 7 mg/24 hr daily 1 patch TRANSDERMAL DAILY 14 Days 03/02/20 11/01/20 transdermal patch #14 ea omeprazole 20 mg capsule,delayed 20 mg PO DAILY #90 cap 03/02/20 11/01/20 release tretinoin microspheres 0.04 % 1 applic TOPICAL QHS #45 g 03/02/20 11/01/20 topical gel permethrin 5 % topical cream 1 applic TOPICAL ONCE #60 g 07/31/20 11/01/20 citalopram 40 mg tablet 40 mg PO DAILY #90 tab 09/04/20 11/01/20 doxycycline hyclate 100 mg PO BID 7 Days #14 tab 11/01/20 ivermectin 1 applic TOPICAL BID 11/01/20 11/01/20 Previous Rx's Medication Instructions Recorded methocarbamol 750 mg tablet 750 mg PO TID PRN #90 tab 04/15/19 nicotine 14 mg/24 hr daily 1 patch TRANSDERMAL DAILY #28 ea 03/02/20 transdermal patch nicotine 21 mg/24 hr daily 1 patch TRANSDERMAL DAILY #42 ea 03/02/20 transdermal patch nicotine 7 mg/24 hr daily 1 patch TRANSDERMAL DAILY 14 Days 03/02/20 transdermal patch #14 ea omeprazole 20 mg capsule,delayed 20 mg PO DAILY #90 cap 03/02/20 release tretinoin microspheres 0.04 % 1 applic TOPICAL QHS #45 g 03/02/20 topical gel permethrin 5 % topical cream 1 applic TOPICAL ONCE #60 g 07/31/20 citalopram 40 mg tablet 40 mg PO DAILY #90 tab 09/04/20 doxycycline hyclate 100 mg PO BID 7 Days #14 tab 11/01/20 Allergies Allergy/AdvReac Type Severity Reaction Status Date / Time Sulfa (Sulfonamide Allergy Skin Rash Unverified 11/01/20 15:06 Antibiotics) seafood Allergy Vomiting Uncoded 11/01/20 15:06 General BELLE: 4 Review of Systems All systems reviewed & are unremarkable except as noted in HPI and below Constitutional Constitutional: Reports as per HPI, Denies chills and Denies fever(s) Eyes Eyes: Denies blurry vision ENT Ears, Nose, Mouth, and Throat: Denies dizziness, Denies sore throat and Denies throat swelling Cardiovascular Cardiovascular: Denies chest pain and Denies dyspnea Respiratory Respiratory: Reports cough and Denies dyspnea Gastrointestinal Gastrointestinal: Denies abdominal pain, Denies diarrhea and Denies vomiting Genitourinary Genitourinary: Denies hematuria and Denies dysuria Musculoskeletal Musculoskeletal: Denies back pain and Denies numbness Integumentary/Breasts Skin/Breast: Reports lesions and Denies rash Neurologic Neurologic: Denies dizziness, Denies localized weakness and Denies numbness Allergic/Immunologic Allergic/Immunologic: Denies throat swelling [facility] Medical History ADHD (attention deficit hyperactivity disorder) Cigarette smoker Generalized anxiety disorder GERD with esophagitis Hiatal hernia Hyperlipidemia Major depressive disorder PTSD (post-traumatic stress disorder) Right-sided Hoover's palsy Suicide attempt Lorazepam overdose. Hospitalized 03/31/07-04/02/07 at [facility] Surgical History History of bilateral tubal ligation (~1999) History of reversal of tubal ligation (~2000) Family History Mother , at 50 Alcohol abuse Depression Father , at 81 Brain tumor Heart disease Alcohol abuse Sister PTSD (post-traumatic stress disorder) Substance abuse Alcohol abuse Depression Sister Fibromyalgia Substance abuse Brother Substance abuse Alcohol abuse Brother Substance abuse Alcohol abuse Daughter Substance abuse Depression Maternal Grandfather Alcohol abuse Maternal Grandmother Emphysema lung Paternal Grandfather No problems noted. Paternal Grandmother Brain tumor Social History Smoking/Tobacco Use Status: Current every day Tobacco Type: cigarettes Smoking packs per day: 1 Smoking cigarettes per day: 20.0 Years smoked: 30 Smoking pack- years: 30.00 Tobacco: How many years used: 30 Quit status: considering quitting Second Hand Exposure: Yes Smoking risk assessment performed?: Yes Alcohol Intake: never Drug use: Never Caregiver/Support person: No Household members: spouse Housing: house Communication Needs: None Do you need help understanding health information?: Rarely Pets and animals: Yes Pets and animals: cat(s) and dog(s) Sexually active: Yes Do you think of yourself as: straight/heterosexual Current gender identity: female What is your relationship status?: How often do you talk on the phone with friends or family?: three or more times per week How often do you get together with friends or relatives?: three or more times per week Do you belong to any clubs or organized social groups?: no Panel score (0-1 are the most socially isolated patients): 2 Seatbelt use: always Helmet use: Yes Helmet use: always Drive intox or ride w/intox delivery truck driver heavy: No Do you feel safe at home: Yes Do you feel safe in your relationship?: Yes Female Reproductive History Menstrual control method: natural family planning History History 1 Para 1 Hx # Term Pregnancies Multiple births Hx # Pregnancies Ectopic pregnancies AB induced Hx Number of Living Children 1 AB spontaneous Exam Const General: cooperative and no acute distress Orientation: alert, awake and oriented x3 HENMT Head: normal to inspection Ears: hearing grossly normal bilaterally, external ears normal and TM's normal bilaterally General nose exam: external nose normal Face images: 1. 1 x 1 cm area of yellow crusted material surrounded by erythema and tenderness to palpation. There is no fluctuance or induration. There is no active drainage or bleeding. 2. Multiple scattered flat red crusted erosions, approximately 2 to 4 mm in size noted on face. No surrounding fluctuance, induration. Mouth: oral mucosae normal Throat: posterior oropharynx normal Eyes General: appearance normal, both eyes and all related structures Neck Neck: normal visual inspection, no lymphadenopathy, no meningeal signs, trachea midline, supple and No submandibular swelling Resp Effort & Inspection: normal respiratory effort and able to speak in complete sentences Auscultation: clear to auscultation bilaterally, no rhonchi and no wheezes Cardio Rate: regular rate Rhythm: regular rhythm Neuro General: patient alert, patient awake and patient oriented x3 Motor: muscle tone normal throughout Extrem General: normal to inspection and full ROM Psych Appearance: grossly normal Affect: normal affect
== END 2020-11-01 15:43 | disposition home or self-care (01) ==
PROVIDERS: Emergency Provider Physician Assistant; PCP Nurse Practitioner Family
DX: L03.211 Cellulitis of face (principal); R05 Cough; F17.210 Nicotine dependence, cigarettes, uncomplicated
CPT/HCPCS: 99283

== ENCOUNTER 2022-04-19 15:06 | Outpatient (CLI) | payer OTHER, SELFPAY ==
[2022-04-19 14:11] LABS: Hemoglobin A1C 5.6 % (<5.7)
[2022-04-19 16:13] LABS: Anion Gap 4.8 mmol/L (3-11); BUN 9 mg/dL (7-18); CO2 30.2 mmol/L (21.0-32.0); CREATININE 0.7 mg/dL (0.55-1.02); Calculated LDL 153 mg/dL (<100); Chloride 106 mmol/L (98-107); Cholesterol 237 mg/dL (<200); Estimated GFR 107.28 (mL/min/1.73m2); Glucose 103 mg/dL (74-106); HDL Cholesterol 69 mg/dL (40-60); Potassium 3.7 mmol/L (3.5-5.1); Sodium 141 mmol/L (136-145); Triglyceride 78 mg/dL (<150)
== END 2022-04-19 15:07 | disposition home or self-care (01) ==
LOC: LBO 15:06
PROVIDERS: PCP Nurse Practitioner Family; Visit Provider Nurse Practitioner Family
DX: Z00.00 Encounter for general adult medical examination without abnormal findings (principal); Z13.220 Encounter for screening for lipoid disorders; Z13.1 Encounter for screening for diabetes mellitus; Z13.228 Encounter for screening for other metabolic disorders
CPT/HCPCS: 36415; 80048; 80061; 83036

== ENCOUNTER 2022-04-26 11:45 | Outpatient (REF) | payer OTHER, SELFPAY ==
--- NOTE | 2022-04-26 11:00 | PAPFT_PTH ---
PATIENT: Vivi Walters LOC: [facility] U#:[id number] AGE/SX: 47/F ROOM: RE04/26/[address]: MAYITO Howard : 1975 BED: DIS: 04/26/2022 SPEC #: [id number] RECD: 04/26/22 13:03 STATUS: TORI RELiza #: [id number] MOISES: 04/26/22 11:[address]: Jennifer Patrick DEPT: [facility] Cytology RECD BY: Lyn Goldberg Tissues: 1 - CX/ENDOCX FOR PAP SMEARS Procedures: PAP THIN PREP/UVM Screening HPV DNA PROBE Comments: [id number]
== END 2022-04-26 11:46 | disposition home or self-care (01) ==
LOC: LBN 11:45
PROVIDERS: PCP Nurse Practitioner Family; Visit Provider Nurse Practitioner Family
DX: Z12.4 Encounter for screening for malignant neoplasm of cervix (principal); Z11.51 Encounter for screening for human papillomavirus (HPV); Z87.42 Personal history of other diseases of the female genital tract
CPT/HCPCS: 88142; 87624

== ENCOUNTER → 2022-05-08 01:29 | Outpatient (CLI) | payer OTHER, SELFPAY ==
--- NOTE | 2022-05-08 07:15 | DI.MAMMO_ITS ---
Exam(s) MAMMO SCREENING EXAM: MAMMO SCREENING CLINICAL HISTORY: screening,Z12.39 TECHNIQUE: Bilateral full field digital CC and MLO mammographic images were obtained with 3D tomosyn thesis and utilizing computer aided detection (CAD). COMPARISON: None. FINDINGS: Masses/Architectural Distortion: None seen. Microcalcifications: No suspicious pleomorphic-type are seen. Skin Thickening/Nipple Retraction: None. IMPRESSION: 1. No significant interval change with no specific features of malignancy noted. 2. Unless there is more urgent need, screening mammography is recommended, as per [place] [place] guidelines. BI-RADS Category 1 - Negative Breast Density - Category C - Heterogeneously dense Breast density category C or D implies that the patient has dense breast tissue. Dense breast tissue is very common and is not abnormal but dense breast tissue can make it harder to find cancer on a ma mmogram. Also, dense breast tissue may increase their breast cancer risk. This information about the result of the mammogram report was provided to the patient to raise their awareness. Use this report when you speak with the patient about their risks for breast cancer, which includes their family hist ory. At that time, you may recommend for more screening tests (Ultrasound or MRI) as they might be us eful based on their risk. A negative radiographic report should not delay biopsy if a dominant or clinically suspicious mass is present. Up to ten percent of cancers are not identified on mammography. A negative report may reinforce clinical impression. Adenosis and dense breasts may obscure an underlying neoplasm. False positive reports average 6 to 10%. Patient will receive a letter notifying them of these results.
== END ==
PROVIDERS: PCP Nurse Practitioner Family; Visit Provider Nurse Practitioner Family
DX: Z12.31 Encounter for screening mammogram for malignant neoplasm of breast (principal); R92.8 Other abnormal and inconclusive findings on diagnostic imaging of breast
CPT/HCPCS: 77063; 77067

== ENCOUNTER 2023-01-24 15:18 | Outpatient (REF) | payer OTHER, SELFPAY ==
[2023-01-27 14:30] LABS: Helicobacter pylori Ag, Feces Negative (Negative)
== END 2023-01-24 15:19 | disposition home or self-care (01) ==
LOC: LBN 15:18
PROVIDERS: PCP Nurse Practitioner Family; Visit Provider Nurse Practitioner Family
DX: K21.00 Gastro-esophageal reflux disease with esophagitis, without bleeding (principal)
CPT/HCPCS: 87338

== ENCOUNTER 2023-02-26 16:51 | Outpatient (REF) | payer OTHER, SELFPAY ==
--- NOTE | 2023-02-26 14:30 | SKI_PTH ---
PATIENT: Vivi Walters LOC: [facility] U#:[id number] AGE/SX: 47/F ROOM: RE02/26/[address]: Gopi Pierre MD : 1975 BED: DIS: 02/26/2023 SPEC #: [id number] RECD: 02/26/23 18:55 STATUS: TORI RELiza #: [id number] MOISES: 02/26/23 14:[address]: Gopi Pierre DEPT: Surgical Specimen RECD BY: Lyn Goldberg ENTERED: 02/26/23 18:55 SP TYPE: KRYSTEN PETERSEN DR: MAYITO Howard Tissues: 1 - SKIN BIOPSY(SHAVE/PUNCH) Procedures: SKIN LEVEL 4 Comments: [id number]
== END 2023-02-26 16:52 | disposition home or self-care (01) ==
LOC: LBN 16:51
PROVIDERS: PCP Nurse Practitioner Family; Visit Provider Otolaryngology
DX: L98.8 Other specified disorders of the skin and subcutaneous tissue (principal); L98.491 Non-pressure chronic ulcer of skin of other sites limited to breakdown of skin
CPT/HCPCS: 88305

== ENCOUNTER 2023-03-12 08:58 | Day surgery (SDC) | payer OTHER, SELFPAY ==
[2023-03-12] VITALS (7 sets, daily range): BP systolic 89–107; BP diastolic 50–74; PULSE 53–68; RESP 18–22; TEMP 36.4–36.8; O2SAT 96–100; BMI 19.8
[2023-03-12] MEDS: Lactated Ringers 1,000 ML 80 ML IV (09:25)
--- NOTE | 2023-03-12 09:33 | W.PM.PROGNOT ---
Date of Service Date of service: 03/12/23 Time of Service: 09:33 Assessment and Plan Assessment and plan (1) GERD with esophagitis: Status: Chronic Assessment and plan: Ms. Walters is a pleasant 47-year-old female who has had worsening heartburn symptoms as well as loss of appetite and weight loss.? She states that this is the way she felt back in 2010 when she was diagnosed with H. pylori infection.? Her stool sample was negative for H. pylori this time around.? She is a smoker so certainly at risk for cancer.? I think it is reasonable to repeat her upper endoscopy and look for celiac disease, H. pylori infection, inflammation and ulcers.? We discussed the procedure in detail as well as the risks, benefits and complications.? After our conversation the patient seemed to have a good understanding of both the procedure as well as the possible complications.? Risks, benefits and complications have been reviewed. Complications include but are not limited to bleeding, pain, perforation, sore throat, aspiration, and adverse reaction to the medications.? Questions were entertained and answered to their satisfaction and they wished to proceed. No guarantees were given or implied. Subjective Subjective Interval history since last seen: I saw Vivi in SDS. She is doing well. She has had no new symptoms and no new concerns. We reviewed the procedure and its possible complications. She had no new questions or concerns and wished to proceed. Objective Last Vital Signs Temp 98.2 F 03/12/23 09:00 Pulse 68 03/12/23 09:00 Resp 18 03/12/23 09:00 BP 98/69 L 03/12/23 09:00 Pulse Ox 99 03/12/23 09:00 Time Spent with Patient Time Spent with Patient: <25 minutes Time was spent: counseling the patient
--- NOTE | 2023-03-12 09:36 | ENDO_ITS ---
Date of service: 03/12/23 Time of Service: 10:42 Endoscopy Report DATE OF PROCEDURE: 03/12/23 PRE-OP DIAGNOSIS: Heart Burn and weight loss POST-OP DIAGNOSIS: other (inflammation in the stomach) PROCEDURE: EGD with biopsies SURGEON: Korina Banerjee ANESTHESIA TYPE: General:No Airway ESTIMATED BLOOD LOSS: 2 PATHOLOGY: other (Bx of stomach, esophagus) COMPLICATIONS: None DISPOSITION: same day INDICATIONS: Ms. Walters is a pleasant 47-year-old female who has had worsening heartburn symptoms as well as loss of appetite and weight loss.? She states that this is the way she felt back in 2010 when she was diagnosed with H. pylori infection.? Her stool sample was negative for H. pylori this time around.? She is a smoker so certainly at risk for cancer.? I think it is reasonable to repeat her upper endoscopy and look for celiac disease, H. pylori infection, inflammation and ulcers.? We discussed the procedure in detail as well as the risks, benefits and complications.? After our conversation the patient seemed to have a good understanding of both the procedure as well as the possible complications.? Risks, benefits and complications have been reviewed. Complications include but are not limited to bleeding, pain, perforation, sore throat, aspiration, and adverse reaction to the medications.? Questions were entertained and answered to their satisfaction and they wished to proceed. No guarantees were given or impli ed. FINDINGS: mild inflammation of the stomach PROCEDURE DESCRIPTION: After informed consent was obtained the patient was take to the procedure room and placed in a supine position. Monitors were applied and a time out was done. The patients name, date of , procedure type, allergies to medicati ons and metal in their body was reviewed. A bite block was placed and the patient was sedated. Once sedated and comfortable the gastroscope was advanced through the oropharynx which was grossly normal into the esophagus. The proximal and mid- esophagus were normal. In the distal esophagus there was no inflammation noted. The scope was advanced into the stomach and through the pylorus into the 3rd portion of the duodenum. The duodenum was noted to be normal. The scope was retracted back into the stomach and biopsies were done to rule out H. pylori. There were no ulcers. The scope was retroflexed. The cardia and fundus were noted to be normal. There was no hiatal hernia noted. The scope was retracted back into the esophagus. The Z line was regular. The GE junction was at 38 cm. The scope was removed and the patient was woken up and taken back to [facility] in stable condition.
--- NOTE | 2023-03-12 09:37 | W.ANESPRE ---
General Info Date of Service Date Performed: 03/12/23 Height: 5 ft Weight: 45.9 kg Body Mass Index (BMI): 19.8 Surgical Procedure: Operation Date: 03/12/23 09:35 Proposed Procedure Side Surgeon p Gastroscopy Korina Banerjee MD Meds Allergies and Home Medications Allergies Allergy/AdvReac Type Severity Reaction Status Date / Time Sulfa (Sulfonamide Allergy Skin Rash Verified 03/12/23 09:17 Antibiotics) bupropion [From Wellbutrin] AdvReac Intermediate Worsened Verified 03/12/23 09:17 anxiety seafood Allergy Vomiting Uncoded 03/12/23 09:17 Home Medication Medication Instructions Recorded omeprazole 20 mg capsule,delayed 20 mg PO DAILY #90 caps 01/06/23 release sertraline 100 mg tablet 150 mg PO DAILY #135 tabs 01/06/23 Current Visit Medications: Current Medications Generic Name Dose Route Start Last Admin Trade Name Freq PRN Reason Stop Dose Admin Ringer's Solution 1,000 mls @ 80 mls/hr 03/12/23 06:00 03/12/23 09:25 IV 04/10/23 23:59 80 mls/hr INFUSION ZOEY Administration IV Miscellaneous Supplies 1 each 03/12/23 06:00 Iv Access IV 04/10/23 23:59 DIRECTED ZOEY Ondansetron HCl 4 mg 03/12/23 09:35 Ondansetron 4 Mg/2 Ml Vial IVP 04/11/23 09:34 Q4H PRN PRN Nausea / Vomiting Sodium Chloride 0 ml 03/12/23 06:00 Normal Saline Flush 10 Ml Syr IV 04/10/23 23:59 PRN PRN Sodium Chloride 0 ml 03/12/23 06:00 Normal Saline 10 Ml Vial IJ 04/10/23 23:59 DIRECTED PRN Sterile Water 0 ml 03/12/23 06:00 Water,Injection,Sterile 10 Ml Vial IJ 04/10/23 23:59 DIRECTED PRN PFSH Active Problems Active Problems: Problem Status Onset Code Skin lesion L98.9 Major depressive disorder, recurrent F33.9 Hyperlipidemia E78.5 ADHD (attention deficit hyperactivity disorder) F90.9 Generalized anxiety disorder F41.1 PTSD (post-traumatic stress disorder) F43.10 Cigarette smoker F17.210 GERD with esophagitis K21.0 Facial skin lesion L98.9 Tinea versicolor B36.0 Medical History Medical History Hiatal hernia Right-sided Hoover's palsy Suicide attempt Lorazepam overdose. Hospitalized 03/31/07-04/02/07 at [facility] Surgical History Surgical History History of bilateral tubal ligation (~1999) History of reversal of tubal ligation (~2000) Tobacco Smoking/Tobacco Use Status: Current every day Tobacco Type: cigarettes Smoking packs per day: 1 Smoking cigarettes per day: 20.0 Years smoked: 30 Smoking pack-years: 30.00 Passive smoking exposure: Yes Second hand exposure: Yes Alcohol Alcohol Intake: former Substance Use Substance use: Daily Substance use type: marijuana Prental History History 1 Para 1 Hx # Term Pregnancies Multiple births Hx # Pregnancies Ectopic pregnancies AB induced Hx Number of Living Children 1 AB spontaneous Vital Signs and Lab Results Vital Signs Most Recent Vital Signs in EMR: Most Recent Vital Signs Temp Pulse Resp BP Pulse Ox 36.8 C 68 18 98/69 L 99 03/12/23 09:00 03/12/23 09:00 03/12/23 09:00 03/12/23 09:00 03/12/23 09:00 Lab Results Blood Type / Crossmatch: No Data to Display Complete Blood Count: No Data to Display Complete Metabolic Panel: No Data to Display Liver Function Panel: No Data to Display Coagulation Panel: No Data to Display Cardiac Panel: No Data to Display Arterial Blood Gas: No Data to Display Venous Blood Gas: No Data to Display Pancreas Panel: No Data to Display Thyroid Panel: No Data to Display Infectious Disease: No Data to Display Blood Cultures: No Data to Display Toxicology Panel: No Data to Display Panel: No Data to Display Anesthesia Assessment and Plan Anesthesia History Personal History: No History of Anesthesia Complications Family History: No Family History of Anesthesia Complications Exercise Tolerance Exercise Tolerance: Metabolic Equivalents>4 Pertinent Negatives Pertinent Negatives: No Symptoms of GERD, No Major Cardiovascular Symptoms or Complaints and No Major Pulmonary Symptoms or Complaints Cardiac & Pulmonary Exam Cardiac Exam: Normal S1/S2 Heart Sounds Pulmonary Exam: Clear Bilateral Breath Sounds Implantable Cardiac Device Does patient have a Pacemaker or an ICD?: No Airway Exam Known Difficult Airway: No Mallampati Class: 2 Mouth Opening: Normal (> 3cm) Thyromental Distance: Greater than 3 cm Neck Range of Motion: Full ROM Neck Circumference: Normal Teeth Condition: Normal Dentition ASA Classification ASA Score: ASA 2 Emergency Case?: No NPO Status NPO Status: NPO Clears >2 hours, Solids >8 hours Status Status: Negative HCG Anesthesia Plan Resuscitation Status: Full Code Anesthesia Technique: General Anesthesia Airway Planned: Natural Airway Monitors Used: Standard Monitors
--- NOTE | 2023-03-12 09:37 | W.PM.DSUDISC ---
Date of service: 03/12/23 Time of Service: 11:22 Discharge Plan Disposition Patient Disposition: Home Condition: Stable Discharge Details Reason For Visit: egd Attending Provider: Korina Banerjee Primary Care Provider: Jennifer Patrick Home Meds and New Rx's Prescriptions: New omeprazole 40 mg capsule,delayed release(DR/EC) 40 mg PO DAILY Qty: 90 5RF Continued sertraline 100 mg tablet 150 mg PO DAILY Qty: 135 3RF Rx Instructions: Take 1.5 tablets daily Discontinued omeprazole 20 mg capsule,delayed release(DR/EC) 20 mg PO DAILY Qty: 90 0RF Discharge Instructions Instructions: Gastritis (DC), Diet for Stomach Ulcers and Gastritis (ED) Additional Instructions: Findings: Inflammation of the stomach Follow up: I will call with results medication: Please start Omeprazole 40 mg daily instead of 20 mg daily Please call if you develop: fevers >101.5 Nausea or Vomiting Abdominal pain that is not transient Rectal bleeding that is more then a tbsp A hard abdomen and inability to pass gas DAY SURGERY UNIT POST ENDOSCOPY INSTRUCTIONS Instructions for everyone who is given Anesthesia: For your safety, please do the following for the next 24 Hours: a. Do not drive or operate dangerous equipment b. Do not drink alcohol beverages or use any recreational drugs for the first 24 hours or while taking pain medications. The medications in your body may have a reaction that can be dangerous. c. Do not make any important decisions or sign any important papers 1. Generally there are no restrictions on your activity after a day or so has gone by, but you may feel a bit fatigued for a few days. 2. After you arrive home you may have a light meal and return to a normal diet as you can tolerate it without feeling sick to your stomach. 3. After surgery, you may feel pain or discomfort. This should be only transient, but if it persists please contact your doctor. 4. If there are any questions regarding the findings of your procedure, please feel free to contact your doctor. 6. If you are unable to contact your doctor with a problem, contact the hospital at [phone]. 7. Continue all your regular medications unless directed otherwise. I understand the above instructions and have no questions. Signature of Patient or Responsible Adult Escort Date/Time Name of Responsible Adult Escort Signature of Nurse Date/Time Stand Alone Forms: Anesthesia Discharge Zakia Seaman ([facility]) Activity:: Activity as Tolerated Shower/Bathe:: 24 hours Diet:: low acid DS: Diagnosis Discharge Diagnosis (1) GERD with esophagitis: Status: Chronic Asessment and Plan: Patient is seen and examined after their endoscopy. Patient has minimal sore throat. They have been able to tolerate liquids. They do not have any Nausea or Vomiting. They are not having any chest pain or shortness of breath. They have been able to pass gas and are not having any abdominal pain or distention. they have not vomited any blood. The vital signs have been stable-see nursing notes. We discussed findings on their endoscopy We reviewed the importance of lifestyle modifications- see diet recommendations We reviewed any new medications that the patient may be prescribed- see medicine reconciliation. Patient will either be sent a letter with the biopsy results or follow up in the office- see discharge instructions Patient was given explicit instructions for emergency follow up post endoscopy- see discharge instructions Patient verbalized understanding and was discharged in stable and satisfactory condition. See nursing notes.
--- NOTE | 2023-03-12 10:30 | STOM_PTH ---
PATIENT: Vivi Walters LOC: [facility] U#:[id number] AGE/SX: 48/F ROOM: RE03/12/[address]: Korina Banerjee MD : [id number] BED: DIS: 03/12/2023 SPEC #: [id number] RECD: 03/12/23 12:58 STATUS: TORI RELiza #: [id number] MOISES: 03/12/23 10:[address]: Korina Banerjee DEPT: Surgical Specimen RECD BY: Lyn Goldberg ENTERED: 03/12/23 12:58 SP TYPE: STOMACH OTHR DR: MAYITO Howard Tissues: 1 - STOMACH BIOPSY 2 - STOMACH BIOPSY Procedures: GROSS AND MICRO LEVEL 4 Comments: [id number]
--- NOTE | 2023-03-12 11:11 | W.ANESPOSTOP ---
Postoperative Evaluation Date, Time and Location Date Performed: 03/12/23 Time Performed: 10:55 Patient Location: PACU Vital Signs Most Recent Imported Vital Signs: Most Recent Vital Signs Temp Pulse Resp BP Pulse Ox 36.7 C 66 18 98/60 L 100 03/12/23 10:54 03/12/23 10:54 03/12/23 10:54 03/12/23 10:54 03/12/23 10:54 Pain Score Most Recent Pain Score: Most Recent Pain Score Pain Level 0 03/12/23 10:54 Assessment Mental Status: Awake (Alert & Oriented to Patient Baseline) Airway and Respiratory Function: Patent airway with normal (patient baseline) respiratory exam Cardiovascular Function: Hemodynamically Stable Hydration Status: Adequately Hydrated Nausea & Vomiting: No Nausea or Vomiting Pain: Pt. Denies Any Pain Peripheral Nerve Block: Patient did not receive a nerve block
== END 2023-03-12 11:50 | disposition home or self-care (01) ==
PROVIDERS: PCP Nurse Practitioner Family; Visit Provider Surgery
PROC: 0DJ68ZZ Inspection of Stomach, Via Natural or Artificial Opening Endoscopic (ICD-10-PCS; CPT 43235; principal; 2023-03-12 09:30)
DX: R63.4 Abnormal weight loss; Z68.1 Body mass index [BMI] 19.9 or less, adult; K29.70 Gastritis, unspecified, without bleeding; R12 Heartburn
CPT/HCPCS: 43239; 88305

== ENCOUNTER 2024-05-28 00:27 | Outpatient (CLI) | payer OTHER, SELFPAY ==
--- NOTE | 2024-05-28 07:30 | DI.MAMMO_ITS ---
Exam(s) MAMMO SCREENING EXAM: MAMMO SCREENING CLINICAL HISTORY: screening,Z12.39. TECHNIQUE: Bilateral full field digital CC and MLO mammographic images were obtained with 3D tomosyn thesis and utilizing computer aided detection (CAD). COMPARISON: Prior mammograms were reviewed. FINDINGS: Fibroglandular tissue pattern is again noted be moderately dense. No new left breast findings. Posterior aspect of the right breast on the CC view there is an asymmetric density-possible nodule me asuring approximately 1.3 x 0.8 cm, located 6 cm in from the Nipple on the CC view. Further imaging recommended. There are no malignant-appearing microcalcification groups is region or elsewhere in either breast There is no significant architectural distortion nor skin thickening-retraction. IMPRESSION: No radiographic evidence of malignancy in the left breast. Asymmetric density-possible nodule in the right breast as described above. Spot compression CC view and breast ultrasound recommended. BI-RADS Category 0 - Incomplete: Need additional imaging evaluation Breast Density - Category C - Heterogeneously dense Breast density Category C or D implies that the patient has dense breast tissue. Dense breast tissue can make it harder to find cancer on a mammogram. Dense breast tissue is also associated with an incr eased risk of breast cancer. This information about the result of the mammogram report was provided to the patient to raise their awareness. Use this report when you speak with the patient about their risks for breast cancer, which includes their family history. At that time, you may recommend additional screening tests (Ultrasoun d or MRI) as these tests may add significant information. A negative radiographic report should not delay biopsy if a dominant or clinically suspicious mass is present. Up to ten percent of cancers are not identified on mammography. A negative report may reinforce clinical impression. Adenosis and dense breasts may obscure an underlying neoplasm. False positive reports average 6 to 10%. Patient will receive a letter notifying them of these results.
== END 2024-05-28 00:47 ==
LOC: DI 00:28
PROVIDERS: PCP Nurse Practitioner Family; Visit Provider Nurse Practitioner Family
DX: Z12.31 Encounter for screening mammogram for malignant neoplasm of breast (principal); R92.333 Mammographic heterogeneous density, bilateral breasts
CPT/HCPCS: 77063; 77067

== ENCOUNTER 2024-05-28 14:49 | Outpatient (CLI) | payer OTHER, SELFPAY ==
[2024-05-28 13:18] LABS: Abs Immature Grans 0.01 10^3/uL (0.0-0.06); Absolute Basophil Count 0.07 10^3/uL (0.0-0.2); Absolute Eosinophil Count 0.14 10^3/uL (0.0-0.7); Absolute Lymphocyte Count 2.41 10^3/uL (1.2-3.4); Absolute Monocyte Count 0.35 10^3/uL (0.1-0.8); Absolute Neutrophil Count 3.33 10^3/uL (1.2-6.7); Basophils % 1.1 %; Eosinophils % 2.2 %; HCT 38.3 % (36.0-46.0); HGB 12.9 g/dL (11.2-15.7); Immature Grans % 0.2 %; Lymphocytes % 38.2 %; MCH 29.7 pg (27.0-33.0); MCHC 33.7 % (32.0-36.0); MCV 88 fL (80-95); MPV 8.9 fL (8.0-11.0); Monocytes % 5.5 %; Neutrophils % 52.8 %; Platelet Count 282 10^3/uL (130-400); RBC 4.34 10^6/uL (3.93-5.22); RDW-SD 42.2 fL; WBC 6.31 10^3/uL (4.4-10.8)
[2024-05-28 13:48] LABS: ALT 12 U/L (14-59); AST 17 U/L (15-37); Albumin 4.1 g/dL (3.4-5.0); Alkaline Phosphatase 58 U/L (46-116); Anion Gap 8.5 mmol/L (3-11); BUN 10 mg/dL (7-18); Bilirubin, Total 0.53 mg/dL (0.2-1.0); CO2 28.5 mmol/L (21.0-32.0); CREATININE 0.8 mg/dL (0.55-1.02); Calcium 9.2 mg/dL (8.5-10.1); Calculated LDL 194 mg/dL (<100); Chloride 106 mmol/L (98-107); Cholesterol 296 mg/dL (<200); Estimated GFR 90.27 (mL/min/1.73m2); Glucose 89 mg/dL (74-106); HDL Cholesterol 81 mg/dL (40-60); Potassium 3.8 mmol/L (3.5-5.1); Sodium 143 mmol/L (136-145); TSH (W/Ref FT4) 3.47 uIU/mL (0.36-3.74); Total Protein 7.3 g/dL (6.4-8.2); Triglyceride 108 mg/dL (<150)
[2024-05-28 23:29] LABS: Hepatitis C Ab w Rflx HCV PCR Negative (Negative)
[2024-05-28 23:30] LABS: HBs Antibody, Quant 585.9 mIU/mL (See Note); Hep B Surface Ab Positive (See Note); Hepatitis B Core Antibody Negative (Negative); Hepatitis B Surface Antigen Negative (Negative)
[2024-05-28 23:32] LABS: HIV-1/2 Ag & Ab Screen Negative (Negative)
== END 2024-05-28 14:50 | disposition home or self-care (01) ==
LOC: LBO 14:50
PROVIDERS: PCP Nurse Practitioner Family; Visit Provider Nurse Practitioner Family
DX: Z11.59 Encounter for screening for other viral diseases (principal); Z00.00 Encounter for general adult medical examination without abnormal findings; E78.5 Hyperlipidemia, unspecified; Z11.4 Encounter for screening for human immunodeficiency virus [HIV]
CPT/HCPCS: 36415; 80053; 80061; 86704; 86706; 86803; 87340; 87389; 84443; 85025

== ENCOUNTER 2024-06-11 00:32 | Outpatient (CLI) | payer OTHER, SELFPAY ==
--- NOTE | 2024-06-11 | DI.MAMMO_ITS ---
Exam(s) MG MAMMO SCREEN CALL BACK UNI US BREAST RT COMPLETE EXAM: MG MAMMO SCREEN CALL BACK UNI CLINICAL HISTORY: Asymmetric density-possible nodule,rt breast, 1.3 x 0.8 cm 6 cm from nipple. TECHNIQUE: Craniocaudal spot compression digital Mammography views of the rightbreast with Tomosynth esis and right breast ultrasound. COMPARISON: MG MG MAMMO SCREENING from 05/08/2022 MG MG MAMMO SCREENING from 05/28/2024 US US BREAST RT COMPLETE from 06/11/2024 FINDINGS: Mammography/Tomosynthesis: Masses: None seen. No persistent abnormality in the central posterior breast. Findings are consiste nt with overlying fibroglandular tissue. Architectural Distortion: None seen. Microcalcifictions: No suspicious pleomorphic-type are seen. Skin Thickening/Nipple Retraction: None. Right breast US: Echotexture: Normal appearance of the glandular tissue. Shadowing: No suspicious foci. Cyst: None. Solid lesions: None seen. Ductal dilation: None. IMPRESSION: 1. No evidence of malignancy is noted. 2. Unless there is more urgent need, follow-up screening mammography is recommended, as per [employer] guidelines. 3. The findings were discussed with the patient on the date of the examination. BI-RADS Category 1 - Negative Breast Density - Category C - Heterogeneously dense A mammogram that demonstrates density of C or D indicates the patient's breast tissue is dense. Dense breast tissue is very common and is not abnormal, but dense breast tissue can make it harder to find cancer on a mammogram. Also, dense breast tissue may increase their breast cancer risk. This informa tion about the result of the mammogram report was provided to the patient to raise their awareness. U se this report when you speak with the patient about their risks for breast cancer, which includes th eir family history. At that time, you may recommend for more screening tests (Ultrasound or MRI) as t hey might be useful based on their risk. A negative radiographic report should not delay biopsy if a dominant or clinically suspicious mass is present. Up to ten percent of cancers are not identified on mammography. A negative report may reinforce clinical impression. Adenosis and dense breasts may obscure an underlying neoplasm. False positive reports average 6 to 10%. Patient will receive a letter notifying them of these results.
== END 2024-06-11 00:52 ==
LOC: DI 00:32
PROVIDERS: PCP Nurse Practitioner Family; Visit Provider Nurse Practitioner Family
DX: Z12.31 Encounter for screening mammogram for malignant neoplasm of breast (principal); R92.333 Mammographic heterogeneous density, bilateral breasts
CPT/HCPCS: 76642; 77063; 77067

== ENCOUNTER 2025-01-11 15:34 | Outpatient (REF) | payer OTHER, SELFPAY ==
[2025-01-11 21:27] LABS: Abs Immature Grans 0.02 10^3/uL (0.0-0.06); HCT 36.9 % (36.0-46.0); HGB 12.5 g/dL (11.2-15.7); Immature Grans % 0.3 %; MCH 29.8 pg (27.0-33.0); MCHC 33.9 % (32.0-36.0); MCV 88 fL (80-95); MPV 10.0 fL (8.0-11.0); Platelet Count 282 10^3/uL (130-400); RBC 4.20 10^6/uL (3.93-5.22); RDW 12.0 % (11.7-14.6); RDW-SD 38.9 fL; WBC 6.23 10^3/uL (4.4-10.8)
[2025-01-11 21:53] LABS: TSH 2.19 uIU/mL (0.36-3.74)
== END 2025-01-11 15:35 | disposition home or self-care (01) ==
LOC: LBN 15:34
PROVIDERS: PCP Nurse Practitioner Family; Visit Provider Registered Nurse
DX: L03.90 Cellulitis, unspecified (principal); J02.9 Acute pharyngitis, unspecified; R22.1 Localized swelling, mass and lump, neck
CPT/HCPCS: 84443; 85025; 87070

== ENCOUNTER 2025-05-02 13:05 | Outpatient (CLI) | payer OTHER, SELFPAY ==
[2025-05-02 16:07] LABS: Abs Immature Grans 0.01 10^3/uL (0.0-0.06); HCT 40.2 % (36.0-46.0); HGB 13.3 g/dL (11.2-15.7); Immature Grans % 0.1 %; MCH 29.8 pg (27.0-33.0); MCHC 33.1 % (32.0-36.0); MCV 90 fL (80-95); MPV 9.5 fL (8.0-11.0); Platelet Count 277 10^3/uL (130-400); RBC 4.47 10^6/uL (3.93-5.22); RDW 12.6 % (11.7-14.6); RDW-SD 41.7 fL; WBC 6.92 10^3/uL (4.4-10.8)
[2025-05-02 16:09] LABS: ESR 4 mm/hr (0-20)
[2025-05-02 16:16] LABS: Hemoglobin A1C 5.3 % (<5.7)
[2025-05-02 16:22] LABS: ALT 14 U/L (10-49); AST 25 U/L (<34); Albumin 4.7 g/dL (3.4-5.0); Alkaline Phosphatase 50 U/L (46-116); Anion Gap 4 mmol/L (3-11); BUN 12 mg/dL (9-23); Bilirubin, Total 0.70 mg/dL (0.2-1.2); C-Reactive Protein < 0.50 mg/dL (<=0.50); CO2 29.0 mmol/L (20.0-31.0); Calcium 9.4 mg/dL (8.3-10.6); Chloride 106 mmol/L (98-107); Cholesterol 225 mg/dL (<200); Glucose 88 mg/dL (74-106); HDL Cholesterol 75 mg/dL (>40); Potassium 3.9 mmol/L (3.5-5.1); Sodium 139 mmol/L (136-145); Total Protein 7.3 g/dL (5.7-8.2)
== END 2025-05-02 13:06 | disposition home or self-care (01) ==
LOC: LOS 13:05
PROVIDERS: PCP Nurse Practitioner Family; Visit Provider Nurse Practitioner Family
DX: R19.4 Change in bowel habit (principal); E78.5 Hyperlipidemia, unspecified
CPT/HCPCS: 36415; 80053; 80061; 85652; 83036; 85025; 86140

== ENCOUNTER 2025-05-09 17:54 | Outpatient (REF) | payer OTHER, SELFPAY ==
[2025-05-11 13:32] LABS: Campylobacter PCR Negative (Negative); Shiga Toxin PCR Negative (Negative); Shigella/Enteroinvasive Ecoli Negative (Negative)
== END 2025-05-09 17:55 | disposition home or self-care (01) ==
LOC: LBN 17:54
PROVIDERS: PCP Nurse Practitioner Family; Visit Provider Nurse Practitioner Family
DX: R19.4 Change in bowel habit (principal)
CPT/HCPCS: 87015; 87177; 87209; 87269; 87272; 87505; 83630

== ENCOUNTER 2025-05-27 01:52 | Outpatient (CLI) | payer OTHER, SELFPAY ==
[2025-05-27] MEDS: Inhaler, Assist Device 1 EACH MC (15:56)
[2025-05-27] MEDS: Levalbuterol HFA 15 GM INH 4 PUFF IH (15:56)
--- NOTE | 2025-06-01 13:33 | W.PFT ---
Date of service: 05/27/25 Time of Service: 15:00 Pulmonary Function Test Result Indications: Occupational exposures, tobacco abuse Impression 1. Good patient effort was noted. ATS standards for reproducibility were met. 2. Spirometry showed and FEV1:FVC ratio at 74%, below predicted. Consistent with mild obstructive lung disease. 3. Following the administration of a bronchodilator there was not a significant response 4. TLC and RV were elevated, consistent with air trapping 5. DLCO was 64%, consistent with a moderate defect in alveolar gas exchange
== END 2025-05-27 01:53 | disposition home or self-care (01) ==
LOC: RT 01:52
PROVIDERS: PCP Nurse Practitioner Family; Visit Provider Nurse Practitioner Family
DX: R06.02 Shortness of breath (principal); F17.210 Nicotine dependence, cigarettes, uncomplicated; J44.9 Chronic obstructive pulmonary disease, unspecified
CPT/HCPCS: 94060; 94726; 94729

== ENCOUNTER → 2025-06-08 00:12 | Outpatient (CLI) | payer OTHER, SELFPAY ==
--- NOTE | 2025-06-08 07:37 | DI.MAMMO_ITS ---
Exam(s) MAMMO SCREENING EXAM: MAMMO SCREENING CLINICAL HISTORY: screening Z12.39. TECHNIQUE: Bilateral full field digital CC and MLO mammographic images were obtained with 3D tomosynthesis and utilizing computer aided detection (CAD). COMPARISON: Prior mammograms were reviewed. FINDINGS: There has been no significant change in the appearance and distribution of the fibroglandular tissue. There are no new spiculated masses nor malignant appearing microcalcification groups. There is no significant architectural distortion nor skin thickening-retraction. IMPRESSION: No radiographic evidence of malignancy. BI-RADS Category 1 - Negative Breast Density - Category C - The breast are heterogeneously dense, which may obscure small masses. Breast density Category C or D implies that the patient has dense breast tissue. Dense breast tissue can make it harder to find cancer on a mammogram. Dense breast tissue is also associated with an increased risk of breast cancer. This information about the result of the mammogram report was provided to the patient to raise their awareness. Use this report when you speak with the patient about their risks for breast cancer, which includes their family history. At that time, you may recommend additional screening tests (Ultrasound or MRI) as these tests may add significant information. A negative radiographic report should not delay biopsy if a dominant or clinically suspicious mass is present. Up to ten percent of cancers are not identified on mammography. A negative report may reinforce clinical impression. Adenosis and dense breasts may obscure an underlying neoplasm. False positive reports average 6 to 10%. Patient will receive a letter notifying them of these results.
== END ==
LOC: DI 00:12
PROVIDERS: PCP Nurse Practitioner Family; Visit Provider Nurse Practitioner Family
DX: Z12.31 Encounter for screening mammogram for malignant neoplasm of breast (principal); R92.323 Mammographic fibroglandular density, bilateral breasts
CPT/HCPCS: 77063; 77067